=== PATIENT | male | born 1975 | race Caucasian/White ===

== ENCOUNTER 2017-02-26 09:27 | Emergency (ER) | payer OTHER ==
[~2017-02-26] VITALS: Ht 167.6 cm; Wt 95.2 kg
[2017-02-26 10:59] VITALS: BP 136/70
== END 2017-02-26 10:59 | disposition home or self-care (01) ==
LOC: ED 09:27
DX: S00.93XA Contusion of unspecified part of head, initial encounter (principal); S60.415A Abrasion of left ring finger, initial encounter; W17.89XA Other fall from one level to another, initial encounter; Y93.89 Activity, other specified; Y99.8 Other external cause status; Y92.89 Other specified places as the place of occurrence of the external cause
CPT/HCPCS: 90715